=== PATIENT | male | born 1975 | race Caucasian/White ===

== ENCOUNTER 2017-10-05 07:48 | Observation (INO) ==
[2017-10-05] MEDS ORDERED: methylPREDNISolone 125 MG/2 ML VIAL IVP ONE (07:57)
[2017-10-05] MEDS ORDERED: Famotidine 20 MG/2 ML VIAL IVP ONE (07:57)
[2017-10-05] MEDS ORDERED: Ondansetron 4 MG/2 ML VIAL IVP ONE (07:57)
--- NOTE | 2017-10-05 08:11 | Emergency Department Note ---
Disposition Clinical Impression: Urticaria Disposition: Admitted As Inpatient Condition: Good Referrals: Mike Nunn MD [Primary Care Provider] - Forms: ED Satisfaction Letter Allergic Reaction HPI - General Chief complaint: ED Allergic Reaction Stated complaint: hives Time Seen by Provider: 10/05/17 07:57 Source: patient Mode of arrival: private vehicle Limitations: no limitations Nursing Notes Reviewed: Yes Vital Signs Reviewed: Yes - History of Present Illness HPI Narrative: Patient presents to the ED with sudden recurrence of diffuse hives, itching and feeling short of breath. Patient was just discharged from this ED a few hours ago for a similar reaction. He had also had some abdominal pain, nausea, vomiting and diarrhea. Lab work was performed which revealed a high white count. CT the abdomen was performed and was negative. He was treated with Benadryl, Solu-Medrol, Pepcid, Zofran and IV fluids during that stay. Hives and itching had completely resolved prior to being discharged home. Patient states when he went home he went straight to bed. He woke up around 7:30 having abdominal cramping again. States he threw up once and then broke out and diffuse hives again. States he feels like his face is tight and swollen. He reports feeling short of breath. He did not take any medications after returning home since he was discharged. He also complains of a headache which she has had since yesterday evening. States he attributed to the multiple episodes of vomiting. His only known allergy is penicillin with hives as a child. He has not been on any recent antibiotics or other new medications. Is not aware of any unusual exposures. No new foods. There has been no recent change in hygiene or laundry products. - Related Data Home Medications Medication Instructions Recorded Confirmed Aspirin 81 mg PO DAILY 10/05/17 10/05/17 Atorvastatin [Lipitor] 10 mg PO HS 10/05/17 10/05/17 Baclofen 20 mg PO TID 10/05/17 10/05/17 Docusate Sodium [Colace] 200 mg PO BID 10/05/17 10/05/17 Duloxetine HCl [Cymbalta] 60 mg PO DAILY 10/05/17 10/05/17 Gabapentin [Neurontin] 800 mg PO TID 10/05/17 10/05/17 Linaclotide [Linzess] 145 mcg PO DAILY 10/05/17 10/05/17 Meloxicam 15 mg PO DAILY 10/05/17 10/05/17 OxyCODONE/APAP 10/325 [Percocet 1 each PO Q6HR PRN 10/05/17 10/05/17 10/325 MG] Peg 3350/Na Sulf,Bicarb,Cl/KCl 3 - 5 each PO DAILY PRN 10/05/17 10/05/17 [Golytely Solution] Polyethylene Glycol 3350 [MiraLAX] 17 gm PO DAILY 10/05/17 10/05/17 metFORMIN [Glucophage] 1,000 mg PO BIDWM 10/05/17 10/05/17 Previous Rx's Medication Instructions Recorded Ondansetron ODT [Zofran ODT] 4 mg SL Q6HR #10 tab.rapdis 10/05/17 Allergies Allergy/AdvReac Type Severity Reaction Status Date / Time Penicillins [PCN] Allergy Anaphylaxis Verified 10/05/17 00:49 Constitutional: Denies: fever, chills, weakness, weight change Eyes: Denies: eye pain, eye discharge, vision change ENT ED: Denies: ear pain, throat pain, dental pain, hearing loss, epistaxis, congestion, dysphagia Cardiovascular: Denies: chest pain, palpitations, dyspnea on exertion, edema, syncope Respiratory: Denies: cough, dyspnea, wheezes, hemoptysis, stridor Gastrointestinal: Reports: as per HPI, abdominal pain, nausea, vomiting, diarrhea. Denies: constipation, hematemesis, melena, hematochezia Genitourinary: Denies: urgency, dysuria, frequency, hematuria Musculoskeletal: Denies: back pain, neck pain, arthralgia, myalgia Integumentary: Reports: as per HPI, pruritus. Denies: rash, abrasion, lesions Neurological: Denies: headache, weakness, numbness, paresthesias, confusion, abnormal gait, vertigo Psychiatric: Denies: anxiety, depression, suicidal thoughts, homicidal thoughts , auditory hallucinations, visual hallucinations Endocrine: Denies: fatigue Hematological/Lymphatic: Denies: easy bleeding, easy bruising Allergic/Immunologic: Reports: as per HPI, facial swelling, urticaria Past Medical History - Past Medical History Medical history: Reports: diabetes, hypertension, seizures Psychiatric history: Reports: depression - Social History Smoking Status: Never smoker Smokeless Tobacco Status: Yes Alcohol use: Reports: none Drug use: Reports: none Physical Exam - General Limitations: no limitations General appearance: alert, anxious - Head Head exam: atraumatic, normocephalic, normal inspection - Eye Eye exam: Present: normal appearance, conjunctival injection - ENT ENT exam: normal exam, normal oropharynx, mucous membranes moist - Neck Neck exam: Present: normal inspection, full ROM, trachea midline - Chest Chest inspection: Present: normal inspection, symmetric chest wall rise - Respiratory Respiratory exam: Present: normal lung sounds bilaterally. Absent: wheezes - Cardiovascular Cardiovascular exam: Present: regular rate, normal rhythm, normal heart sounds - Abdominal Exam Abdominal exam: Present: soft, tenderness, normal bowel sounds. Absent: distention, guarding, rebound, rigidity Abdominal tenderness: Present: epigastrium - Extremities Exam Extremities exam: Present: normal inspection, full ROM. Absent: tenderness, pedal edema - Neurological Exam Neurological exam: Present: alert, oriented X3 - Psychiatric Psychiatric exam: Present: normal affect, normal mood - Skin Skin exam: Present: warm, dry, intact, normal color, other (Diffuse hives on torso, arms and legs) Course Course Narrative: Patient returns to the ED with reoccurrence of diffuse hives, itching, feelings of his face is swollen subjective shortness of breath after just being discharged for similar reaction a few hours ago. Lungs are clear on exam and oxygen saturations in the high 90s. Will retreat with Benadryl, Pepcid and Solu -Medrol. Patient is still nauseous. We will give Zofran as well. We will check a fingerstick glucose. He had a full complement of labs just a few hours ago and I do not feel that any repeat laboratory studies are warranted at this time. We will monitor closely in the ED for resolution of symptoms. Given his recurrent episode he will benefit from overnight observation for any recurrence. Will treat symptomatically for his gastroenteritis symptoms. Patient will be turned over to the on-coming physician, Dr. Peraza for continued management. Vital Signs Temperature 97.7 F 10/05/17 07:49 Pulse Rate 116 10/05/17 07:49 Respiratory Rate 18 10/05/17 07:49 Blood Pressure 139/75 10/05/17 07:49 O2 Sat by Pulse Oximetry 95 10/05/17 07:49 Temperature 97.7 F 10/05/17 07:49 Pulse Rate 105 10/05/17 08:18 Respiratory Rate 17 10/05/17 08:18 Blood Pressure 137/89 10/05/17 08:18 O2 Sat by Pulse Oximetry 97 10/05/17 08:22 Oxygen Delivery Oxygen Delivery Nasal Cannula Allergic Reaction - MDM Narrative Medical decision making narrative: Case taken over from Dr. Garg and discussed with Dr. Flores who accepted admission. Pt with leukocytosis and otherwise neg labs and CT a few hours ago. Dr. Garg was still in the department for questioning during my conversation with . I agree with her diagnosis and treatment plan. - Differential Diagnosis Differential Diagnosis: Likely: anaphylaxis, allergic reaction, urticaria. Unlikely: angioedema, adverse reaction to drug - Medical Records Medical records reviewed: Yes I reviewed the patient's medical records. José - José Situation: Demographics, MOA Background: Presenting Complaint, Relevant PMH, Meds, & Allergies Assessment: Vital Signs, Course and respsone to treatment, Exam Concerns, Patient/Family Expectation, Pertinant Lab Results Recommendation: Barrier(s) to disposition, Recommendation based on pending studies, treatments, or consults S.B.AMadie Report Given to: Dr. Karmen Kumar Repor Time: 08:15
[2017-10-05] MEDS ORDERED: Naloxone 0.4 MG/ML INJ IVP PRN (08:52)
[2017-10-05] MEDS ORDERED: *HR* Metformin 500 MG TABLET PO SCH (09:15)
[2017-10-05] MEDS: Gabapentin 400 MG CAPSULE PO SCH ×3 (09:42→20:49)
[2017-10-05] MEDS: Aspirin 81 MG TAB.CHEW PO SCH (09:43)
[2017-10-05] MEDS: Baclofen 10 MG TABLET PO SCH ×3 (09:43→20:49)
[2017-10-05] MEDS: *HR* OxyCODONE/APAP 10/325 TABLET PO PRN ×3 (09:48→20:52)
[2017-10-05] MEDS: LINZESS 145 MCG PO SCH (10:33)
--- NOTE | 2017-10-05 11:52 | Internal Med History&Physical ---
Date of Encounter: 10/05/17 Time of Encounter: 11:15 Assessment and Plan (1) Gastroenteritis Current visit: No Status: Acute He has been ordered IV fluids and will be given antiemetics when necessary. (2) Hypertension Current visit: Yes Status: Chronic Will monitor blood pressure. Qualifiers: Hypertension type: essential hypertension Qualified Code(s): I10 - Essential (primary) hypertension (3) Hypokalemia Current visit: Yes Status: Acute Suspect secondary to vomiting and diarrhea. Will give IV fluids with supplemental potassium and monitor labs. (4) DM type 2 (diabetes mellitus, type 2) Current visit: Yes Status: Chronic Glucophage will be held because of contrast abdominal CT emergency room. Check hemoglobin A1c in a.m. 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 Will give IV steroids and antihistamines. Internal Medicine - H&P: HPI Chief complaint: Vomiting, diarrhea, hives Admitted From: Emergency Dept Plans for Post Hospital Care: Home History of present illness: Mr. Marx is a 42 year old male who came to emergency room in the senior technical architect hours complaining of onset of vomiting, diarrhea, and hives on his torso and extremities approximately 5 PM the previous day. He was treated and discharged. Upon his return home he had recurrence of hives and felt overall unimprovement. He returned to emergency room and was admitted to [facility] for for ongoing care needs. He reports he has not felt well for approximately 5-7 days and has experienced myalgias and abdominal pain with poor oral intake. He denies family contacts with similar illnesses. His GI history is pertinent for constipation. He had a precancerous colon polyp removed during colonoscopy in 2016. Repeat colonoscopy will be done later this year. He denies disorders of his liver gallbladder or exocrine pancreas. He has had no unusual ingestions or skin contact with unusual substances. He has not had hives since age 3. Past Med Surg Social Fam HX - Past Medical History Medical history: diabetes, hypertension, seizures Psychiatric history: depression - Social History Smoking Status: Never smoker Smokeless Tobacco Status: Yes Alcohol use: none Drug use: none Internal Medicine - H&P: Meds Aspirin 81 mg PO DAILY 10/05/17 [History] Atorvastatin [Lipitor] 10 mg PO HS 10/05/17 [History] Baclofen 20 mg PO TID 10/05/17 [History] Docusate Sodium [Colace] 200 mg PO BID 10/05/17 [History] Duloxetine HCl [Cymbalta] 60 mg PO DAILY 10/05/17 [History] Gabapentin [Neurontin] 800 mg PO TID 10/05/17 [History] Linaclotide [Linzess] 145 mcg PO DAILY 10/05/17 [History] Meloxicam 15 mg PO DAILY 10/05/17 [History] Ondansetron ODT [Zofran ODT] 4 mg SL Q6HR #10 tab.rapdis 10/05/17 [Rx] OxyCODONE/APAP 10/325 [Percocet 10/325 MG] 1 each PO Q6HR PRN 10/05/17 [History] Peg 3350/Na Sulf,Bicarb,Cl/KCl [Golytely Solution] 3 - 5 each PO DAILY PRN 10/05 [History] Polyethylene Glycol 3350 [MiraLAX] 17 gm PO DAILY 10/05/17 [History] metFORMIN [Glucophage] 1,000 mg PO BIDWM 10/05/17 [History] 3 Allergy/AdvReac Type Severity Reaction Status Date / Time Penicillins [PCN] Allergy Anaphylaxis Verified 10/05/17 00:49 All Systems PM: A 10-system review of systems was performed and is negative for pertinent findings except as documented above in the HPI. Review of systems: Gen.: He states his weight has increased approximately 60 pounds in the past year. He attributes this to inactivity from back injury and pain Cardiovascular: He has history of hypertension but denies MA heart failure angina DVT or pulmonary embolus Respiratory: He is a lifelong nonsmoker has no known chronic lung disease GI: As per history of present illness : Denies hematuria or dysuria or kidney stones Neurologic: He had seizures in the past but has had none for 15 years. He denies strokes or other neurologic problems Endocrine: He was diagnosed with DM2 approximately 1 year ago. He has borderline hyperlipidemia and has been prescribed Lipitor. He denies thyroid disease. Hematology/oncology: He denies blood disorders cancers or anemia. He had a precancerous colon polyp removed as per history of present illness Psychiatric: He has depression and takes Cymbalta. He denies anxiety or other mental health issues Muscle skeletal: He had injury at work March 2015 with resulting L5-S1 disc protrusion requiring partial discectomy. 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 He denies gout. He has had left rotator cuff injury and bilateral foot surgeries. He has had 4 surgeries on his nose. - Constitutional Vitals: Temp Pulse Resp BP Pulse Ox 97.7 F 105 18 117/78 97 10/05/17 07:49 10/05/17 08:18 10/05/17 08:45 10/05/17 08:45 10/05/17 08:22 Exam: General: He is a well-developed overweight male lying in bed who appears in no significant distress at present time HEENT: Head is atraumatic and normocephalic. Eyes: EOMI. There is no sclerae icterus. Mouth: Mucosa is moist. Neck: There is no thyromegaly or adenopathy noted. Supple and nontender. Heart: Regular with rate approximately 104/m at rest Lungs: No wheezes or crackles are heard. Abdomen: Bowel sounds are diminished. There is mild diffuse tenderness without guarding or masses. Extremities: There is no cyanosis edema or clubbing noted. Dorsalis pedis and posttibial pulses are 1-2 over 2 bilaterally. Neurologic: Mental status: He is talkative and a good historian. Cranial nerves : Smile is symmetric. Forehead wrinkles bilaterally. Tongue protrudes midline. EOMI. Motor: There is no pronator drift. Cerebellar: Finger to nose is intact bilaterally. Skin: Warm and dry. He has visible hives at multiple places on his upper chest , legs and arms. He has multiple 1-2 mm erythematous maculopapular lesions on his flexor forearm surface bilaterally.
[2017-10-05 12:19] LABS: Magnesium 1.5 mg/dL (1.6-2.6); Phosphorous 3.1 mg/dL (2.7-4.5)
[2017-10-05] MEDS: Loratadine 10 MG TABLET PO SCH (12:30)
[2017-10-05] MEDS: Ondansetron ODT 4 MG TAB.RAPDIS SL SCH ×2 (12:30→17:22)
[2017-10-05] MEDS: 0.45 % Sodium Chloride w/KCl 20 MEQ/1,000 ML MLS IVC SCH ×2 (12:30→20:49)
[2017-10-05] MEDS ORDERED: D5% in Water 1,000 ML IVC PRN (17:18)
[2017-10-05] MEDS ORDERED: *HR* Dextrose 50 % in Water (Syg) 50 ML SYRINGE IVP PRN (17:18)
[2017-10-05] MEDS ORDERED: Dextrose Gel 15 GM/37.5 ML TUBE PO PRN ×2 (17:18)
[2017-10-05] MEDS: methylPREDNISolone 125 MG/2 ML VIAL IVP SCH (17:22)
[2017-10-05] MEDS: Insulin LISPRO 300 UNITS/3 ML VIAL SQ SCH (23:24)
[2017-10-06] MEDS: Ondansetron ODT 4 MG TAB.RAPDIS SL SCH ×5 (00:24→23:57)
[2017-10-06] MEDS: 0.45 % Sodium Chloride w/KCl 20 MEQ/1,000 ML MLS IVC SCH ×3 (03:46→20:22)
[2017-10-06 03:54] LABS: Basophils % 0.2 %; Eosinophils # 0.2 K/mcL (0.0-0.6); Eosinophils % 1.1 %; Hematocrit 41.3 % (37.5-50.1); Hemoglobin 14.3 g/dL (12.9-16.9); Immature Granulocytes % 0.3 % (0-4); Lymphocytes # 1.4 K/mcL (0.6-4.6); Mean Corpuscular HGB Conc 34.6 g/dL (31.6-35.5); Mean Corpuscular Hemoglobin 31.6 pg (28.0-33.3); Mean Corpuscular Volume 91.2 fL (83.0-100.0); Mean Platelet Volume 12.2 fL (9.4-12.4); Monocytes % 6.4 %; Platelet Count 208 K/mcL (140-400); Red Blood Count 4.53 M/mcL (4.19-5.50); Red Cell Distribution Width 12.5 % (11.5-14.5)
[2017-10-06 03:56] LABS: Monocytes # 1.2 K/mcL (0.0-1.3)
[2017-10-06 04:15] LABS: BUN/Creatinine Ratio 18 (6-26); Blood Urea Nitrogen 15 mg/dL (6-20); Calcium 8.1 mg/dL (8.6-10.3); Carbon Dioxide 26 mEq/L (23-29); Chloride 101 mEq/L (98-107); Glucose 163 mg/dL (70-105); Osmolality,Calculated 288 (280-300); Potassium 3.7 mEq/L (3.5-5.1); Sodium 137 mEq/L (136-145); eGFR For Non-African Americans > 60 (> 60)
[2017-10-06] MEDS: methylPREDNISolone 125 MG/2 ML VIAL IVP SCH ×2 (05:21→17:17)
[2017-10-06] MEDS: *HR* OxyCODONE/APAP 10/325 TABLET PO PRN ×4 (05:21→23:58)
[2017-10-06 09:06] LABS: Hemoglobin A1C 6.9 %
[2017-10-06] MEDS: Insulin LISPRO 300 UNITS/3 ML VIAL SQ SCH ×4 (09:10→20:24)
[2017-10-06] MEDS: Aspirin 81 MG TAB.CHEW PO SCH (09:11)
[2017-10-06] MEDS: Loratadine 10 MG TABLET PO SCH (09:11)
[2017-10-06] MEDS: Baclofen 10 MG TABLET PO SCH ×3 (09:13→20:23)
[2017-10-06] MEDS: Gabapentin 400 MG CAPSULE PO SCH ×3 (09:14→20:23)
--- NOTE | 2017-10-06 10:06 | Internal Med Progress Note ---
Date of Encounter: 10/06/17 Time of Encounter: 09:55 - Assessment and plan (1) Gastroenteritis Current Visit: No Status: Acute Assessment and plan: October 06. Continue IV fluids. We will give antiemetics when necessary. (2) Hypertension Current Visit: Yes Status: Chronic Assessment and plan: October 06. Blood pressure stable off medication Qualifiers: Hypertension type: essential hypertension Qualified Code(s): I10 - Essential (primary) hypertension (3) Hypokalemia Current Visit: Yes Status: Acute Assessment and plan: October 06. Potassium now normal. Continue present regimen. (4) DM type 2 (diabetes mellitus, type 2) Current Visit: Yes Status: Chronic Assessment and plan: October 06. Hemoglobin A1c improved to 6.9%. 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 Continue IV steroids and antihistamines. - Subjective Interval history: October 06. He has no new complaints. He states he has had no further vomiting but still has diarrhea. - Constitutional Vitals: Temp Pulse Resp BP Pulse Ox 98.5 F 99 18 121/77 94 10/06/17 04:00 10/06/17 04:00 10/06/17 04:00 10/06/17 04:00 10/06/17 04:00 Exam: He is resting comfortably in bed and appears in no acute distress. His heart is regular without murmurs gallops or ectopics. Lungs are clear anteriorly. He still has maculopapular lesions on his forearms. I reviewed his medications and lab results. Internal Medicine: Result - Labs CBC & Chem 7: 10/06/17 03:15 10/06/17 03:15 Labs: Short CBC 10/06/17 Range/Units 03:15 WBC 17.9 H (4.3-11.1) K/mcL Hgb 14.3 D (12.9-16.9) g/dL Hct 41.3 (37.5-50.1) % Plt Count 208 (140-400) K/mcL Neutrophils # 15.0 H (1.6-8.9) K/mcL BMP 10/06/17 03:15 Sodium 137 Potassium 3.7 Chloride 101 Carbon Dioxide 26 BUN 15 Creatinine 0.84 Glucose 163 H Calcium 8.1 L Consult Discharge Plan - Plan Referrals: Mike Nunn MD [Primary Care Provider] - 1 week
[2017-10-06] MEDS: LINZESS 145 MCG PO SCH (10:36)
[2017-10-06] MEDS: Magnesium Oxide 400 MG TABLET PO SCH ×2 (11:09→20:23)
[2017-10-06] MEDS ORDERED: Simethicone 80 MG TAB.CHEW PO PRN (20:47)
[2017-10-07] MEDS: methylPREDNISolone 125 MG/2 ML VIAL IVP SCH (03:43)
[2017-10-07] MEDS: 0.45 % Sodium Chloride w/KCl 20 MEQ/1,000 ML MLS IVC SCH (03:52)
[2017-10-07] MEDS: Ondansetron ODT 4 MG TAB.RAPDIS SL SCH ×2 (06:36→12:54)
[2017-10-07 06:37] LABS: Basophils % 0.2 %; Eosinophils # 0.2 K/mcL (0.0-0.6); Hematocrit 38.3 % (37.5-50.1); Hemoglobin 13.1 g/dL (12.9-16.9); Immature Granulocytes % 0.6 % (0-4); Lymphocytes % 5.9 %; Mean Corpuscular HGB Conc 34.2 g/dL (31.6-35.5); Mean Corpuscular Hemoglobin 31.9 pg (28.0-33.3); Mean Corpuscular Volume 93.2 fL (83.0-100.0); Mean Platelet Volume 11.9 fL (9.4-12.4); Monocytes % 5.1 %; Neutrophils # 14.5 K/mcL (1.6-8.9); Platelet Count 191 K/mcL (140-400); Red Blood Count 4.11 M/mcL (4.19-5.50); Red Cell Distribution Width 12.7 % (11.5-14.5); Segmented Neutrophils % 87.2 %
[2017-10-07 06:40] LABS: Monocytes # 0.9 K/mcL (0.0-1.3)
[2017-10-07 06:56] LABS: BUN/Creatinine Ratio 24 (6-26); Blood Urea Nitrogen 19 mg/dL (6-20); Calcium 7.9 mg/dL (8.6-10.3); Carbon Dioxide 27 mEq/L (23-29); Chloride 105 mEq/L (98-107); Glucose 154 mg/dL (70-105); Osmolality,Calculated 287 (280-300); Potassium 4.3 mEq/L (3.5-5.1); Sodium 136 mEq/L (136-145); eGFR For Non-African Americans > 60 (> 60)
[2017-10-07] MEDS: Magnesium Oxide 400 MG TABLET PO SCH (08:20)
[2017-10-07] MEDS: Gabapentin 400 MG CAPSULE PO SCH (08:20)
[2017-10-07] MEDS: Baclofen 10 MG TABLET PO SCH (08:20)
[2017-10-07] MEDS: Aspirin 81 MG TAB.CHEW PO SCH (08:20)
[2017-10-07] MEDS: Loratadine 10 MG TABLET PO SCH (08:21)
[2017-10-07] MEDS: Insulin LISPRO 300 UNITS/3 ML VIAL SQ SCH ×2 (08:28→12:53)
[2017-10-07] MEDS ORDERED: Famotidine 20 MG TABLET PO ONE (10:00)
[2017-10-07] MEDS ORDERED: methylPREDNISolone 125 MG/2 ML VIAL IVP ONE (10:04)
[2017-10-07] MEDS: LINZESS 145 MCG PO SCH (10:19)
[2017-10-07 10:34] VITALS: BP 149/86
[2017-10-07] MEDS: *HR* OxyCODONE/APAP 10/325 TABLET PO PRN (12:59)
--- NOTE | 2017-10-07 14:46 | Discharge Summary ---
Date of Encounter: 10/07/17 Time of Encounter: 14:30 - Discharge Diagnosis (1) Gastroenteritis Priority: Primary Status: Acute (2) Urticaria Priority: Secondary Status: Acute (3) Hypertension Priority: Secondary Status: Chronic Qualifiers: Hypertension type: essential hypertension Qualified Code(s): I10 - Essential (primary) hypertension (4) Hypokalemia Priority: Secondary Status: Resolved (5) DM type 2 (diabetes mellitus, type 2) Priority: Secondary Status: Chronic Qualifiers: Diabetes mellitus complication status: without complication Diabetes mellitus group home insulin use: without group home use Qualified Code(s): E11.9 - Type 2 diabetes mellitus without complications Hospital course: Mr. 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 He was treated and discharged. Upon his return home he had recurrence of hives and felt overall unimprovement. He returned to emergency room and was admitted to [facility] for ongoing care needs. Initial orders were written by the emergency room physician. I saw him on October 05 and performed the history and physical. He received IV fluids. Antiemetics were given as needed. He had resolution of vomiting and diarrhea by the second hospital day and adequate food and fluid intake. He had intermittent worsening of hives. I felt the hives were likely due to enterovirus infection. He was given IV steroids and oral first and second generation H1 antihistamines and H2 antihistamines. On October 07 he was improved sufficiently to be discharged home. He will continue with oral prednisone and first and second generation H1 antihistamines and H2 antihistamines at discharge. He will follow with his PCP Dr. Mike Nunn within 1 week. - Time Spent with Patient Total time spent providing and/or coordinating discharge services: - Discharge Medications Prescriptions: DiphenhydraMINE [Benadryl] 50 mg PO Q6HR PRN #40 capsule PRN Reason: Allergic Symptoms Cetirizine HCl [Zyrtec] 10 mg PO BID #10 tablet Famotidine [Pepcid] 20 mg PO BID #10 tablet predniSONE [PredniSONE] 40 mg PO BIDWM #18 tablet Home Medications: Aspirin 81 mg PO DAILY 10/05/17 [History] Atorvastatin [Lipitor] 10 mg PO HS 10/05/17 [History] Baclofen 20 mg PO TID 10/05/17 [History] Docusate Sodium [Colace] 200 mg PO BID 10/05/17 [History] Duloxetine HCl [Cymbalta] 60 mg PO DAILY 10/05/17 [History] Gabapentin [Neurontin] 800 mg PO TID 10/05/17 [History] Linaclotide [Linzess] 145 mcg PO DAILY 10/05/17 [History] Meloxicam 15 mg PO DAILY 10/05/17 [History] Ondansetron ODT [Zofran ODT] 4 mg SL Q6HR #10 tab.rapdis 10/05/17 [Rx] OxyCODONE/APAP 10/325 [Percocet 10/325 MG] 1 each PO Q6HR PRN 10/05/17 [History] Peg 3350/Na Sulf,Bicarb,Cl/KCl [Golytely Solution] 3 - 5 each PO DAILY PRN 10/05 [History] Polyethylene Glycol 3350 [MiraLAX] 17 gm PO DAILY 10/05/17 [History] metFORMIN [Glucophage] 1,000 mg PO BIDWM 10/05/17 [History] Cetirizine HCl [Zyrtec] 10 mg PO BID #10 tablet 10/07/17 [Rx] DiphenhydraMINE [Benadryl] 50 mg PO Q6HR PRN #40 capsule 10/07/17 [Rx] Famotidine [Pepcid] 20 mg PO BID #10 tablet 10/07/17 [Rx] predniSONE [PredniSONE] 40 mg PO BIDWM #18 tablet 10/07/17 [Rx] Allergies/Adverse Reactions: 3 Allergy/AdvReac Type Severity Reaction Status Date / Time Penicillins [PCN] Allergy Anaphylaxis Verified 10/05/17 00:49 Date of admission: 10/05/17 08:37 Primary care physician: Mike Nunn MD - Constitutional Vitals: Temp Pulse Resp BP Pulse Ox 97.5 F L 90 17 149/86 97 10/07/17 10:33 10/07/17 10:33 10/07/17 10:33 10/07/17 10:33 10/07/17 10:33 - Patient Status Disposition: Home, Self-Care Condition: Good Functional capacity at discharge: independent ambulation Overall status at discharge: patient is progressing back to baseline - Discharge Instructions Follow Up With: Mike Nunn MD [Primary Care Provider] - 1 week - Diet and Activity Activity: resume usual activities as tolerated Diet: advance to your usual diet
== END 2017-10-07 15:15 | disposition home or self-care (01) ==
LOC: EMEROOPIK 07:48 → INPPIK 07:48
PROVIDERS: ADMIT Internal Medicine; ATTEND Internal Medicine